=== PATIENT | female | born 1975 | race Caucasian/White ===

== ENCOUNTER 2023-03-16 16:38 | Inpatient (IN) | payer OTHER ==
[2023-03-16 18:07] VITALS: BMI 20.9
[2023-03-16] MEDS ORDERED: NALOXONE HCL (KLOXXADO) 8 MG SPRAY NS PRN (18:35)
[2023-03-16] MEDS ORDERED: BENZONATATE 200 MG CAPSULE PO PRN (18:35)
[2023-03-16] MEDS ORDERED: guaiFENesin 600 MG TABLET.ER (FP) PO PRN (18:35)
[2023-03-16] MEDS ORDERED: MAG HYDROX/AL HYDROX/SIMETH 30 ML UNIT-DOSE CUP PO PRN (18:35)
[2023-03-16] MEDS ORDERED: POLYETHYLENE GLYCOL (HEALTHYLAX) 3350 17 GM PACKET PO PRN (18:35)
[2023-03-16] MEDS ORDERED: ONDANSETRON *ODT* 4 MG TABLET SL PRN (18:35)
[2023-03-16] MEDS ORDERED: NALOXONE HCL 0.4 MG/ML VIAL IM PRN (18:35)
[2023-03-16] MEDS ORDERED: IBUPROFEN 400 MG TABLET (FP) PO PRN (18:35)
[2023-03-16] MEDS ORDERED: NICOTINE 10 MG CARTRIDGE (INHALER) IH PRN (18:35)
[2023-03-16] MEDS ORDERED: BISMUTH SUBSALICYLATE 524 MG/30 ML PO PRN (18:35)
[2023-03-16] MEDS ORDERED: P-EPHED 60MG/TRIPROLIDI 2.5MG TABLET PO PRN (18:35)
[2023-03-16] MEDS ORDERED: BENZOCAINE/MENTHOL (CHLORASEPTIC ) LOZENGE MM PRN (18:35)
[2023-03-16] MEDS ORDERED: MAGNESIUM HYDROX 2400MG/30ML ORAL SUSPENSION 30 ML CUP PO PRN (18:35)
[2023-03-16] MEDS ORDERED: DICYCLOMINE HCL 10 MG CAPSULE PO PRN (18:35)
[2023-03-16] MEDS ORDERED: LOPERAMIDE HCL 2 MG CAPSULE PO PRN (18:35)
[2023-03-16] MEDS ORDERED: chlordiazePOXIDE HCL 25 MG CAPSULE PO PRN (18:37)
[2023-03-16] MEDS ORDERED: chlordiazePOXIDE HCL 25 MG CAPSULE ONE (19:24)
[2023-03-16] MEDS: IBUPROFEN 600 MG TABLET (FP) PO PRN (19:28)
[2023-03-16] MEDS ORDERED: chlordiazePOXIDE HCL 25 MG CAPSULE PO ONE (19:30)
[2023-03-16] MEDS: chlordiazePOXIDE HCL 25 MG CAPSULE PO SCH (23:07)
[2023-03-16] MEDS: THIAMINE HCL 100 MG TABLET (FP) PO SCH (23:07)
[2023-03-16] MEDS: MELATONIN 5 MG TABLETS PO SCH (23:07)
[2023-03-16] MEDS: BACITRACIN 0.9 GM PACKET TP SCH (23:13)
[2023-03-16] MEDS: ACETAMINOPHEN 325 MG TABLET (FP) PO PRN (23:16)
[2023-03-17] MEDS: chlordiazePOXIDE HCL 25 MG CAPSULE PO SCH ×4 (05:45→22:42)
[2023-03-17] MEDS: IBUPROFEN 600 MG TABLET (FP) PO PRN ×2 (05:46→17:07)
[2023-03-17 09:28] LABS: HEMATOCRIT 35.3 % (32.4-45.2); HEMOGLOBIN 12.2 GM/dL (10.7-15.3); MCHC 34.5 g/dl (32.0-36.0); MEAN CELL VOLUME 92.9 fl (80-96); MEAN PLT VOLUME 7.9 fl (7.5-11.1); PLATELET COUNT 242 10^3/uL (134-434); RDW 13.6 % (11.6-15.6); WHITE BLOOD COUNT 5.6 K/mm3 (4.0-10.0)
[2023-03-17 10:35] LABS: POTASSIUM 3.6 mmol/L (3.5-5.1)
[2023-03-17] MEDS: BACITRACIN 0.9 GM PACKET TP SCH ×2 (10:37→22:42)
[2023-03-17] MEDS: PRENATAL VITAMINS W/ FOLIC ACID TABLET (FP) PO SCH (10:38)
[2023-03-17] MEDS: ACETAMINOPHEN 325 MG TABLET (FP) PO PRN ×2 (10:39→22:53)
[2023-03-17 10:41] LABS: CALCIUM 8.5 mg/dL (8.5-10.1)
[2023-03-17 10:42] LABS: ALBUMIN 2.9 g/dl (3.4-5.0); BLOOD UREA NITROGEN 11.8 mg/dL (7-18)
[2023-03-17] MEDS: NICOTINE 14 MG/24 HOURS TOPICAL PATCH TD SCH (10:42)
[2023-03-17 10:45] LABS: CREATININE 0.6 mg/dL (0.55-1.3)
[2023-03-17 10:46] LABS: BILIRUBIN,TOTAL 0.6 mg/dL (0.2-1); TOT PROT 5.7 g/dl (6.4-8.2)
[2023-03-17] MEDS: METHOCARBAMOL 500 MG TABLET PO PRN (17:39)
[2023-03-17] MEDS: THIAMINE HCL 100 MG TABLET (FP) PO SCH (22:41)
[2023-03-17] MEDS: MELATONIN 5 MG TABLETS PO SCH (22:42)
[2023-03-18] MEDS: chlordiazePOXIDE HCL 25 MG CAPSULE PO SCH ×4 (05:56→22:37)
[2023-03-18] MEDS: IBUPROFEN 600 MG TABLET (FP) PO PRN ×3 (05:57→16:59)
[2023-03-18] MEDS: METHOCARBAMOL 500 MG TABLET PO PRN (10:28)
[2023-03-18] MEDS: ACETAMINOPHEN 325 MG TABLET (FP) PO PRN ×2 (10:29→22:38)
[2023-03-18] MEDS: PRENATAL VITAMINS W/ FOLIC ACID TABLET (FP) PO SCH (10:31)
[2023-03-18] MEDS: BACITRACIN 0.9 GM PACKET TP SCH ×2 (10:32→22:37)
[2023-03-18] MEDS: NICOTINE 14 MG/24 HOURS TOPICAL PATCH TD SCH (10:32)
[2023-03-18] MEDS: THIAMINE HCL 100 MG TABLET (FP) PO SCH (22:37)
[2023-03-18] MEDS: hydrOXYzine PAMOATE 25 MG CAPSULE (FP) PO PRN (22:37)
[2023-03-18] MEDS: MELATONIN 5 MG TABLETS PO SCH (22:38)
[2023-03-19] MEDS ORDERED: chlordiazePOXIDE HCL 10 MG CAPSULE PO PRN
[2023-03-19] MEDS: chlordiazePOXIDE HCL 10 MG CAPSULE PO SCH ×4 (05:15→22:07)
[2023-03-19] MEDS: NICOTINE 14 MG/24 HOURS TOPICAL PATCH TD SCH (10:40)
[2023-03-19] MEDS: PRENATAL VITAMINS W/ FOLIC ACID TABLET (FP) PO SCH (10:40)
[2023-03-19] MEDS: BACITRACIN 0.9 GM PACKET TP SCH ×2 (10:41→22:06)
[2023-03-19] MEDS: IBUPROFEN 600 MG TABLET (FP) PO PRN ×2 (12:19→17:20)
[2023-03-19] MEDS: hydrOXYzine PAMOATE 25 MG CAPSULE (FP) PO PRN (17:20)
[2023-03-19] MEDS: THIAMINE HCL 100 MG TABLET (FP) PO SCH (22:07)
[2023-03-19] MEDS: MELATONIN 5 MG TABLETS PO SCH (22:07)
[2023-03-19] MEDS: METHOCARBAMOL 500 MG TABLET PO PRN (22:11)
[2023-03-20] MEDS ORDERED: chlordiazePOXIDE HCL 10 MG CAPSULE PO SCH (05:00)
[2023-03-20] MEDS: IBUPROFEN 600 MG TABLET (FP) PO PRN (05:50)
[2023-03-20] MEDS: METHOCARBAMOL 500 MG TABLET PO PRN (07:53)
[2023-03-20] MEDS: PRENATAL VITAMINS W/ FOLIC ACID TABLET (FP) PO SCH (10:28)
[2023-03-20] MEDS: NICOTINE 14 MG/24 HOURS TOPICAL PATCH TD SCH (10:28)
[2023-03-20] MEDS: ACETAMINOPHEN 325 MG TABLET (FP) PO PRN (10:30)
[2023-03-20] MEDS: hydrOXYzine PAMOATE 25 MG CAPSULE (FP) PO PRN (10:30)
[2023-03-20] MEDS: BACITRACIN 0.9 GM PACKET TP SCH (10:33)
[2023-03-20 13:12] VITALS: BP 129/77; PULSE 71; RESP 19; TEMP 97.7
[2023-03-21] MEDS ORDERED: chlordiazePOXIDE HCL 10 MG CAPSULE PO ONE (05:00)
== END 2023-03-20 16:00 | disposition home or self-care (01) | DRG 775 ==
LOC: YASAS 16:38 → Y6N 18:56
PROVIDERS: ADMIT Allergy & Immunology; ATTEND Surgery
PROC: HZ2ZZZZ Detoxification Services for Substance Abuse Treatment (ICD-10-PCS; principal; 2023-03-16)
DX: F10.230 Alcohol dependence with withdrawal, uncomplicated (principal); F17.213 Nicotine dependence, cigarettes, with withdrawal; Z86.19 Personal history of other infectious and parasitic diseases; Z91.013 Allergy to seafood
CPT/HCPCS: 36415; 80053; 81025; 85027; 86593; 86780; 87635